=== PATIENT | male | born 1985 | race African-American/Black ===

== ENCOUNTER 2020-02-25 03:13 | Emergency (ER) | payer SELFPAY ==
[~2020-02-25] VITALS: Ht 167.6 cm; Wt 68.0 kg
[2020-02-25 04:09] LABS: CHLORIDE 107 mEq/L (98-107)
[2020-02-25 04:10] LABS: ETHANOL BLOOD 84 mg/dL
[2020-02-25 04:20] LABS: *AMPHETAMINES SCREEN URINE PRESUMTIVE POSITIVE (NEGATIVE); *BARBITURATES SCREEN URINE NEGATIVE (NEGATIVE); *BENZODIAZEPINES SCREEN URINE NEGATIVE (NEGATIVE); *COCAINE SCREEN URINE PRESUMTIVE POSITIVE (NEGATIVE); METHADONE URINE SCREEN NEGATIVE (NEGATIVE); OPIATES URINE SCREEN NEGATIVE (NEGATIVE); PHENCYCLIDINE URINE SCREEN PRESUMTIVE POSITIVE (NEGATIVE)
[2020-02-25 04:21] LABS: CANNABINOID URINE SCREEN PRESUMTIVE POSITIVE (NEGATIVE)
[2020-02-25 04:40] LABS: BASOPHILS % 0.4 % (0.0-2.0); EOSINOPHILS % 3.1 % (0.0-5.0); HEMATOCRIT. 42.2 % (42.0-52.0); HEMOGLOBIN. 14.9 g/dL (14.0-18.0); LYMPHOCYTES % 30.6 % (20.0-50.0); MEAN CORPUSCULAR HEMOGLOBIN 32.4 pg (28.0-32.0); MEAN CORPUSCULAR VOLUME 91.8 fL (80.0-94.0); MEAN PLATELET VOLUME 8.8 fl (7.4-10.4); MONOCYTES % 9.9 % (2.0-8.0); PLATELET 227 x1000/uL (130-400); RED CELL DISTRIBUTION WIDTH 14.7 % (11.6-14.6)
[2020-02-25 06:18] VITALS: BP 163/82
== END 2020-02-25 06:56 | disposition home or self-care (01) ==
LOC: ER 03:13 → EDBD 03:13 → ER 06:56
DX: F14.10 Cocaine abuse, uncomplicated (principal); F15.10 Other stimulant abuse, uncomplicated; F16.10 Hallucinogen abuse, uncomplicated; F12.10 Cannabis abuse, uncomplicated; F10.10 Alcohol abuse, uncomplicated; Y90.4 Blood alcohol level of 80-99 mg/100 ml; R00.0 Tachycardia, unspecified
CPT/HCPCS: 36415; 80053; 80305; 80320; 82962; 85025; 93005; 99284; G0480

== ENCOUNTER 2022-12-10 21:59 | Emergency (ER) | payer OTHER ==
[~2022-12-10] VITALS: Ht 182.9 cm; Wt 77.0 kg
[~2022-12-10 21:59] MED LIST: ALBU05 NEB; ALBU18HF2 IH; FLUT1DIS3 INH; IBUP-2029 MT; P20 MT; RISP1 PO
[2022-12-11] MEDS ORDERED: IBUPROFEN 400MG TABLET PO ONE (02:45)
[2022-12-11] MEDS ORDERED: ACETAMINOPHEN 500MG TABLET PO ONE (02:45)
[2022-12-11 04:13] VITALS: BP 136/72
[2022-12-11 04:46] LABS: HEMATOCRIT. 37.2 % (42.0-52.0); HEMOGLOBIN. 12.6 g/dL (14.0-18.0); MEAN CORPUSCULAR HEMOGLOBIN 31.1 pg (28.0-32.0); MEAN CORPUSCULAR VOLUME 91.6 fL (80.0-94.0); MEAN PLATELET VOLUME 8.4 fl (7.4-10.4); PLATELET 322 x1000/uL (130-400); RED BLOOD CELL COUNT 4.06 mill/uL (4.7-6.1); RED CELL DISTRIBUTION WIDTH 15.2 % (11.6-14.6)
[2022-12-11 05:03] LABS: CHLORIDE 108 mEq/L (98-107)
[2022-12-11 09:15] LABS: PLATELET ESTIMATE NORMAL
== END 2022-12-11 05:34 | disposition home or self-care (01) ==
LOC: ER 22:11
DX: R53.1 Weakness (principal)
CPT/HCPCS: 36415; 80053; 85025; 99283

== ENCOUNTER 2025-01-10 00:03 | Emergency (ER) | payer MEDICAID, OTHER ==
[~2025-01-10] VITALS: Ht 167.6 cm; Wt 93.2 kg
[2025-01-10 00:14] VITALS: BP 172/102; RESP 19; TEMP 36.9; O2SAT 99
[2025-01-10 00:16] VITALS: PULSE 134; O2SAT 96
[2025-01-10 01:42] LABS: CHLORIDE 103 mEq/L (98-107); POTASSIUM 3.7 mEq/L (3.5-5.1); SODIUM 135 mEq/L (136-145)
[2025-01-10 01:43] LABS: CARBON DIOXIDE 20 mEq/L (21-32); HEMATOCRIT. 48.6 % (42.0-52.0); HEMOGLOBIN. 16.5 g/dL (14.0-18.0); MEAN CORPUSCULAR HEMOGLOBIN 30.8 pg (28.0-32.0); MEAN CORPUSCULAR HGB CONC 33.9 g/dL (31.0-37.0); MEAN CORPUSCULAR VOLUME 90.9 fL (80.0-94.0); PLATELET 238 x1000/uL (130-400); RED BLOOD CELL COUNT 5.35 mill/uL (4.7-6.1); RED CELL DISTRIBUTION WIDTH 14.3 % (11.6-14.6)
[2025-01-10 01:46] LABS: DIFFERENTIAL COMMENT 1
[2025-01-10 01:48] LABS: CREATININE 1.3 mg/dL (0.6-1.3); GLUCOSE 134 mg/dL (70-105); UREA NITROGEN BLOOD 14 mg/dL (9-23)
[2025-01-10 01:49] LABS: ETHANOL BLOOD < 10 mg/dL (<10)
[2025-01-10 01:50] LABS: ACETAMINOPHEN < 2 ug/mL (10-30); ALANINE AMINOTRANSFERASE 73 IU/L (10-49); ALBUMIN 4.9 g/dL (3.2-4.8); ASPARTATE AMINOTRANSFERASE 234 IU/L (<34); BILIRUBIN DIRECT 0.3 mg/dL (<=3.0); BILIRUBIN TOTAL 1.4 mg/dL (0.1-1.0)
[2025-01-10 02:07] LABS: PROTEIN TOTAL 8.4 g/dL (6.0-8.3)
[2025-01-10 07:23] LABS: PLATELET ESTIMATE NORMAL
== END 2025-01-10 01:44 | disposition left against medical advice (07) ==
LOC: ER 00:03
DX: I10 Essential (primary) hypertension (principal); Z53.21 Procedure and treatment not carried out due to patient leaving prior to being seen by health care provider
CPT/HCPCS: 36415; 80048; 80076; 80307; 80320; 80329; 85025; 93005; G0480